=== PATIENT | female | born 1980 | race African-American/Black ===

== ENCOUNTER 2017-02-19 22:23 | Emergency (ER) | payer OTHER ==
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
== END 2017-02-20 01:05 | disposition home or self-care (01) ==
LOC: CED 22:23 → CFTX 22:23
DX: S16.1XXA Strain of muscle, fascia and tendon at neck level, initial encounter (principal); S00.93XA Contusion of unspecified part of head, initial encounter; F41.9 Anxiety disorder, unspecified; Z88.0 Allergy status to penicillin; V49.50XA Passenger injured in collision with unspecified motor vehicles in traffic accident, initial encounter; Y92.488 Other paved roadways as the place of occurrence of the external cause
CPT/HCPCS: 70450; 99284